=== PATIENT | male | born 1975 | race Caucasian/White ===

== ENCOUNTER 2021-04-05 21:09 | Day surgery (SDC) | payer BC ==
[2021-04-05] MEDS ORDERED: EPINEPHrine 0.3 MG in Ophthalmic Irrigation Solution 500 ML IRR SCH (21:30)
[2021-04-05] MEDS ORDERED: Fentanyl 100 MCG/2 ML VIAL ONE (22:03)
[2021-04-05] MEDS ORDERED: Lidocaine 1% PF 5 ML VIAL ONE (23:30)
[2021-04-05] MEDS ORDERED: PROPOFOL 200 MG/20 ML VIAL ONE (23:30)
[2021-04-05] MEDS ORDERED: Ondansetron PF 4 MG/2 ML Vial ONE (23:30)
[2021-04-05] MEDS ORDERED: Ondansetron HCl/PF 4 MG/2 ML Vial IVP PRN (23:47)
[2021-04-05] MEDS ORDERED: Promethazine HCl 25 MG/ML VIAL IVPB PRN (23:47)
[2021-04-05] MEDS ORDERED: Promethazine HCl 25 MG/ML VIAL IM PRN (23:47)
== END 2021-04-06 01:10 | disposition critical access hospital (66) ==
LOC: ERS 21:09 → SDC 21:10
PROVIDERS: ATTEND Orthopaedic Surgery Sports Medicine
PROC: 08T53ZZ Resection of Left Vitreous, Percutaneous Approach (ICD-10-PCS; principal; 2021-04-05)
DX: H33.012 Retinal detachment with single break, left eye (principal); Z88.0 Allergy status to penicillin; Z88.5 Allergy status to narcotic agent
CPT/HCPCS: 67025; J0171; J2405; J2704; J3010